=== PATIENT | female | born 1955 | race African-American/Black ===

== ENCOUNTER 2018-08-01 06:21 | Inpatient (IN) | payer MEDICAID ==
[~2018-08-01] VITALS: Ht 165.1 cm; Wt 64.9 kg
[2018-08-01] VITALS (11 sets, daily range): BP systolic 118–145; BP diastolic 58–81
[2018-08-01 07:42] LABS: HEMATOCRIT 40.5 % (36.0-48.0); HEMOGLOBIN 13.6 g/dL (12.0-16.0); MEAN CORPUSCULAR HEMOGLOBIN 27.8 pg (28.0-32.0); MEAN CORPUSCULAR VOLUME 82.9 fL (81.0-99.0); PLATELET 239 x1000/uL (130-400); RED BLOOD CELL COUNT 4.89 mill/uL (4.2-5.4); RED CELL DISTRIBUTION WIDTH 14.7 % (11.6-14.6)
[2018-08-01 07:45] LABS: CHLORIDE 106 mEq/L (98-107)
[2018-08-01] MEDS ORDERED: TRAZ-213 MT (07:57)
[2018-08-01] MEDS ORDERED: ASPI-1159 PO (07:57)
[2018-08-01] MEDS ORDERED: DIGO125T82 PO (07:57)
[2018-08-01] MEDS ORDERED: OMEP20CA10 MT (07:57)
[2018-08-01] MEDS ORDERED: SIMV10TA6 MT (07:57)
[2018-08-01] MEDS ORDERED: METF-416 MT (07:57)
[2018-08-01] MEDS ORDERED: LISI10TA5 MT (07:57)
[2018-08-01] MEDS ORDERED: GLIP10TA10 PO ×2 (07:57)
[2018-08-01] MEDS ORDERED: ISOS20TA8 PO (07:57)
[2018-08-01] MEDS ORDERED: HYDR-3282 MT (07:57)
[2018-08-01] MEDS ORDERED: HYDR-4134 PO (07:57)
[2018-08-01] MEDS ORDERED: EMPA25TA PO (07:57)
[2018-08-01] MEDS ORDERED: MAGN400T26 MT (07:57)
[2018-08-01] MEDS ORDERED: METO-385 MT (07:57)
[2018-08-01 08:04] LABS: PARTIAL THROMBOPLASTIN TIME 28.9 sec (23.4-31.0); PROTHROMBIN TIME 10.5 sec (9.6-11.0)
[2018-08-01] MEDS ORDERED: GENTAMICIN SULF 40MG/ML 2ML VIAL ONE (08:20)
[2018-08-01] MEDS ORDERED: GENTAMICIN/NS IRRIGATION 500 ML IR ONE (08:21)
[2018-08-01] MEDS ORDERED: LIDOCAINE HCL 1% 20ML VIAL (Pyxis) INJ ONE (08:21)
[2018-08-01] MEDS ORDERED: HEPARIN 1,000 UNITS PREMIX 0 ML IV ONE (08:21)
[2018-08-01] MEDS ORDERED: PROPOFOL 10MG/ML 100ML 100 ML IV ONE (08:22)
[2018-08-01] MEDS ORDERED: MEPERIDINE HCL/PF 25MG/ML CPJ IV PRN (09:45)
[2018-08-01] MEDS ORDERED: ONDANSETRON HCL 4MG/2ML INJ IV PRN (09:45)
[2018-08-01] MEDS ORDERED: FENTANYL CITRATE/PF 50MCG/ML 2ML VIAL IV PRN (09:45)
[2018-08-01] MEDS ORDERED: HYDROMORPHONE HCL/PF 2MG/ML CPJ IV PRN (09:45)
[2018-08-01] MEDS ORDERED: MORPHINE SULFATE 2 MG/ML CPJ (NOT FOR IM USE) IV PRN (09:45)
[2018-08-01] MEDS ORDERED: VANCOMYCIN 1 G PREMIX 200 ML IV SCH (10:00)
[2018-08-01] MEDS ORDERED: FUROSEMIDE 40MG/4ML VIAL IVP SCH (10:30)
[2018-08-01] MEDS ORDERED: DIPHENHYDRAMINE 50MG/ML VIAL IV ONE (11:15)
[2018-08-01] MEDS: HYDROCODONE/ACETAMINOPHEN 5/325MG TABLET PO PRN ×3 (13:35→21:41)
[2018-08-02] VITALS (8 sets, daily range): BP systolic 126–150; BP diastolic 62–79
[2018-08-02] MEDS: HYDROCODONE/ACETAMINOPHEN 5/325MG TABLET PO PRN ×3 (03:26→12:40)
[2018-08-02 06:56] LABS: BASOPHILS % 0.5 % (0.0-2.0); EOSINOPHILS % 1.6 % (0.0-5.0); HEMOGLOBIN. 13.3 g/dL (12.0-16.0); LYMPHOCYTES % 23.7 % (20.0-50.0); MEAN CORPUSCULAR VOLUME 83.1 fL (81.0-99.0); MEAN PLATELET VOLUME 8.9 fl (7.4-10.4); MONOCYTES % 9.3 % (2.0-8.0); NEUTROPHILS % 64.9 % (40.0-76.0); PLATELET 208 x1000/uL (130-400); RED BLOOD CELL COUNT 4.93 mill/uL (4.2-5.4); RED CELL DISTRIBUTION WIDTH 14.7 % (11.6-14.6)
[2018-08-02 07:38] LABS: CHLORIDE 107 mEq/L (98-107)
[2018-08-02] MEDS ORDERED: VANCOMYCIN 1 G PREMIX 200 ML IV SCH (08:00)
== END 2018-08-02 14:17 | disposition home or self-care (01) | DRG 176 ==
LOC: CCL 06:21 → 3WST 06:22
PROVIDERS: ADMIT Internal Medicine Clinical Cardiac Electrophysiology; ATTEND Internal Medicine Clinical Cardiac Electrophysiology
PROC: 0JPT0PZ Removal of Cardiac Rhythm Related Device from Trunk Subcutaneous Tissue and Fascia, Open Approach (ICD-10-PCS; principal; 2018-08-01)
PROC: 0JH608Z Insertion of Defibrillator Generator into Chest Subcutaneous Tissue and Fascia, Open Approach (ICD-10-PCS; 2018-08-01)
PROC: 4A023FZ Measurement of Cardiac Rhythm, Percutaneous Approach (ICD-10-PCS; 2018-08-01)
PROC: 4A0234Z Measurement of Cardiac Electrical Activity, Percutaneous Approach (ICD-10-PCS; 2018-08-01)
DX: I11.0 Hypertensive heart disease with heart failure (principal); I42.0 Dilated cardiomyopathy; Z45.02 Encounter for adjustment and management of automatic implantable cardiac defibrillator; I50.23 Acute on chronic systolic (congestive) heart failure; E11.9 Type 2 diabetes mellitus without complications; Z87.891 Personal history of nicotine dependence; Z79.899 Other long term (current) drug therapy
CPT/HCPCS: 33262; 36415; 71045; 80048; 80375; 82947; 82962; 85027; 93005; 93640; A4565; C1722; C1893; J1200; J1580; J1644; J2270; J2704; J3370; J3490; J7040; J7050

== ENCOUNTER 2018-08-29 12:24 | Inpatient (IN) | payer MEDICAID ==
[~2018-08-29] VITALS: Ht 165.1 cm; Wt 63.5 kg
[~2018-08-29 12:24] MED LIST: ASPI-1393 PO; DIGO125T82 PO; EMPA25TA PO; GLIP10TA10 PO; HYDR-3282 MT; HYDR-4134 PO; ISOS20TA8 PO; LISI10TA5 MT; MAGN400T26 MT; METF-416 MT; METO-385 MT; OMEP20CA5 MT; SIMV10TA6 MT; TRAZ-213 MT
[2018-08-29] MEDS ORDERED: ONDANSETRON HCL 4MG/2ML INJ IV STA (13:00)
[2018-08-29] MEDS ORDERED: HYDROCODONE/APAP 7.5/325MG 1 TAB TABLET PO ONE (13:00)
[2018-08-29 13:59] LABS: CLARITY URINE CLEAR (CLEAR); COLOR URINE YELLOW (YELLOW); KETONES URINE NEGATIVE (NEGATIVE); LEUKOCYTE ESTERASE URINE NEGATIVE (NEGATIVE); NITRITE URINE NEGATIVE (NEGATIVE); OCCULT BLOOD URINE NEGATIVE (NEGATIVE); PROTEIN URINE NEGATIVE (NEGATIVE); SPECIFIC GRAVITY URINE 1.043 (1.005-1.030); UROBILINOGEN URINE 0.2 E.U./dL (0.2-1.0)
[2018-08-29 13:59] LABS: CHLORIDE 104 mEq/L (98-107)
[2018-08-29 14:00] LABS: BASOPHILS % 0.6 % (0.0-2.0); EOSINOPHILS % 1.9 % (0.0-5.0); HEMATOCRIT. 43.1 % (36.0-48.0); HEMOGLOBIN. 14.1 g/dL (12.0-16.0); LYMPHOCYTES % 33.9 % (20.0-50.0); MEAN CORPUSCULAR HEMOGLOBIN 27.4 pg (28.0-32.0); MEAN CORPUSCULAR VOLUME 83.5 fL (81.0-99.0); MEAN PLATELET VOLUME 8.3 fl (7.4-10.4); MONOCYTES % 9.4 % (2.0-8.0); NEUTROPHILS % 54.2 % (40.0-76.0); PLATELET 219 x1000/uL (130-400); PROTHROMBIN TIME 10.2 sec (9.6-11.0); RED BLOOD CELL COUNT 5.16 mill/uL (4.2-5.4)
[2018-08-29] MEDS ORDERED: NITROFURANTOIN 100MG M/M CAPSULE PO ONE (17:45)
[2018-08-29] MEDS ORDERED: PHENAZOPYRIDINE HCL 100MG TABLET PO ONE (17:45)
[2018-08-29] MEDS ORDERED: DEXTROSE 50% WATER 50ML SYRINGE IV PRN (18:45)
[2018-08-29] MEDS ORDERED: ONDANSETRON HCL 4MG/2ML INJ IV PRN (18:45)
[2018-08-29] MEDS ORDERED: LACTULOSE 20G/30ML UDC PO NR (18:45)
[2018-08-29] MEDS ORDERED: ACETAMINOPHEN 325MG TABLET PO PRN (18:45)
[2018-08-29] MEDS: BLOOD SUGAR DIAGNOSTIC STRIP TEST SCH (21:00)
[2018-08-29 22:00] VITALS: BP 136/63
[2018-08-29] MEDS: HYDROCODONE/ACETAMINOPHEN 5/325MG TABLET PO PRN (22:23)
[2018-08-29 22:32] VITALS: BP 136/63
[2018-08-29] MEDS: INSULIN LISPRO 100 UNITS/ML SUBCUT SCH (22:36)
[2018-08-30] VITALS: BP 141/74
[2018-08-30 04:00] VITALS: BP 129/68
[2018-08-30] MEDS: HYDROCODONE/ACETAMINOPHEN 5/325MG TABLET PO PRN ×3 (05:14→17:52)
[2018-08-30 06:05] LABS: BASOPHILS % 0.6 % (0.0-2.0); EOSINOPHILS % 2.8 % (0.0-5.0); HEMATOCRIT. 40.1 % (36.0-48.0); HEMOGLOBIN. 13.2 g/dL (12.0-16.0); LYMPHOCYTES % 40.9 % (20.0-50.0); MEAN CORPUSCULAR HEMOGLOBIN 27.5 pg (28.0-32.0); MEAN CORPUSCULAR VOLUME 83.3 fL (81.0-99.0); MEAN PLATELET VOLUME 8.3 fl (7.4-10.4); MONOCYTES % 11.8 % (2.0-8.0); NEUTROPHILS % 43.9 % (40.0-76.0); PLATELET 194 x1000/uL (130-400); RED BLOOD CELL COUNT 4.81 mill/uL (4.2-5.4); RED CELL DISTRIBUTION WIDTH 14.9 % (11.6-14.6)
[2018-08-30] MEDS: INSULIN LISPRO 100 UNITS/ML SUBCUT SCH ×4 (06:28→20:22)
[2018-08-30] MEDS: BLOOD SUGAR DIAGNOSTIC STRIP TEST SCH ×4 (06:28→20:03)
[2018-08-30 07:18] LABS: CHLORIDE 107 mEq/L (98-107)
[2018-08-30 08:00] VITALS: BP 145/67
[2018-08-30 09:11] LABS: *AMPHETAMINES SCREEN URINE NEGATIVE (NEGATIVE); *BARBITURATES SCREEN URINE NEGATIVE (NEGATIVE); *BENZODIAZEPINES SCREEN URINE NEGATIVE (NEGATIVE); *COCAINE SCREEN URINE NEGATIVE (NEGATIVE); METHADONE URINE SCREEN NEGATIVE (NEGATIVE); OPIATES URINE SCREEN PRESUMTIVE POSITIVE (NEGATIVE)
[2018-08-30 09:13] LABS: CANNABINOID URINE SCREEN NEGATIVE (NEGATIVE); PHENCYCLIDINE URINE SCREEN NEGATIVE (NEGATIVE)
[2018-08-30 12:00] VITALS: BP 142/73
[2018-08-30 16:00] VITALS: BP 151/81
[2018-08-30] MEDS: GLIPIZIDE 10MG TABLET PO SCH ×2 (17:10→18:35)
[2018-08-30] MEDS ORDERED: FLUCONAZOLE 150MG TABLET PO NR (17:30)
[2018-08-30] MEDS: METFORMIN HCL 500MG TABLET PO SCH (17:52)
[2018-08-30] MEDS: ASPIRIN 81MG TABLET PO SCH (17:52)
[2018-08-30] MEDS ORDERED: DIGOXIN 125MCG TABLET PO SCH (18:00)
[2018-08-30 20:00] VITALS: BP 161/68
[2018-08-30] MEDS: METOPROLOL TARTRATE 25MG TABLET PO SCH (20:03)
[2018-08-30] MEDS: HYDRALAZINE HCL 25MG TABLET PO SCH (20:03)
[2018-08-30] MEDS: ISOSORBIDE DINITRATE 20MG TABLET PO SCH (20:15)
[2018-08-30] MEDS ORDERED: ATORVASTATIN CALCIUM 10MG TABLET PO SCH (21:00)
[2018-08-30] MEDS ORDERED: TRAZODONE HCL 100MG TABLET PO SCH (21:00)
[2018-08-31] VITALS: BP 114/57
[2018-08-31 04:00] VITALS: BP 123/65
[2018-08-31] MEDS: HYDROCODONE/ACETAMINOPHEN 5/325MG TABLET PO PRN ×2 (04:28→13:46)
[2018-08-31 05:37] LABS: CHLORIDE 108 mEq/L (98-107)
[2018-08-31 06:03] LABS: BASOPHILS % 0.5 % (0.0-2.0); EOSINOPHILS % 2.8 % (0.0-5.0); HEMATOCRIT. 39.5 % (36.0-48.0); HEMOGLOBIN. 12.7 g/dL (12.0-16.0); MEAN CORPUSCULAR VOLUME 83.7 fL (81.0-99.0); MEAN PLATELET VOLUME 8.7 fl (7.4-10.4); MONOCYTES % 10.9 % (2.0-8.0); NEUTROPHILS % 48.8 % (40.0-76.0); PLATELET 200 x1000/uL (130-400); RED BLOOD CELL COUNT 4.72 mill/uL (4.2-5.4)
[2018-08-31] MEDS: METFORMIN HCL 500MG TABLET PO SCH (06:47)
[2018-08-31] MEDS: GLIPIZIDE 10MG TABLET PO SCH (06:47)
[2018-08-31] MEDS: BLOOD SUGAR DIAGNOSTIC STRIP TEST SCH ×2 (06:48→12:10)
[2018-08-31] MEDS: INSULIN LISPRO 100 UNITS/ML SUBCUT SCH ×2 (06:49→12:13)
[2018-08-31] MEDS ORDERED: OMEPRAZOLE 20MG CAPSULE EXTENDED RELEASE PO SCH (07:10)
[2018-08-31 08:00] VITALS: BP 143/62
[2018-08-31] MEDS ORDERED: SIMVASTATIN PO SCH (09:00)
[2018-08-31] MEDS ORDERED: MAGNESIUM OXIDE 400MG TABLET PO SCH (09:00)
[2018-08-31] MEDS ORDERED: LISINOPRIL 10MG TABLET PO SCH (09:00)
[2018-08-31] MEDS ORDERED: EMPAGLIFLOZIN PO SCH (09:00)
[2018-08-31] MEDS ORDERED: METOPROLOL SUCCINATE PO SCH (09:00)
[2018-08-31] MEDS: HYDRALAZINE HCL 25MG TABLET PO SCH (09:26)
[2018-08-31] MEDS: ASPIRIN 81MG TABLET PO SCH (09:29)
[2018-08-31] MEDS: METOPROLOL TARTRATE 25MG TABLET PO SCH (09:29)
[2018-08-31] MEDS: ISOSORBIDE DINITRATE 20MG TABLET PO SCH (09:29)
[2018-08-31 12:00] VITALS: BP 114/67
[2018-08-31 13:46] VITALS: BP 114/67
== END 2018-08-31 15:04 | disposition home or self-care (01) | DRG 531 ==
LOC: ER 12:24 → EDBEDREQ 15:17 → 8WST 17:13 → EDBEDREQ 17:22 → ENRESERV 19:50
PROVIDERS: ADMIT Internal Medicine; ATTEND Internal Medicine
DX: B37.3 Candidiasis of vulva and vagina (principal); I11.0 Hypertensive heart disease with heart failure; I42.9 Cardiomyopathy, unspecified; I50.22 Chronic systolic (congestive) heart failure; E11.65 Type 2 diabetes mellitus with hyperglycemia; D25.9 Leiomyoma of uterus, unspecified; E78.00 Pure hypercholesterolemia, unspecified; M54.5 Low back pain; K59.00 Constipation, unspecified; E11.9 Type 2 diabetes mellitus without complications; E78.5 Hyperlipidemia, unspecified; G89.29 Other chronic pain; M53.3 Sacrococcygeal disorders, not elsewhere classified; M79.7 Fibromyalgia; Z95.810 Presence of automatic (implantable) cardiac defibrillator
CPT/HCPCS: 36415; 71045; 73521; 74176; 80048; 80305; 82962; 83880; 84484; 93005; 93306; 96374; 97116; 97162; 99285; J1815; J2405